=== PATIENT | female | born 1980 | race Caucasian/White ===

== ENCOUNTER 2016-12-02 02:21 | Emergency (ER) | payer SELFPAY | END 2016-12-02 06:28 | disposition home or self-care (01) | LOC: D.ER 02:21 | DX: S51.812A Laceration without foreign body of left forearm, initial encounter (principal); Y04.2XXA Assault by strike against or bumped into by another person, initial encounter; Y93.89 Activity, other specified; Y92.019 Unspecified place in single-family (private) house as the place of occurrence of the external cause; S51.811A Laceration without foreign body of right forearm, initial encounter ==